=== PATIENT | female | born 1960 | race Caucasian/White ===

== ENCOUNTER 2019-06-27 11:52 | Emergency (ER) | payer SELFPAY ==
[~2019-06-27] VITALS: Ht 162.6 cm; Wt 54.0 kg
[2019-06-27] MEDS ORDERED: LIDOCAINE 1% W/EPINEPHRINE 20 ML VIAL INJ ONE (12:15)
[2019-06-27] MEDS ORDERED: TETANUS/DIPHTHERIA TOX ADULT 0.5 ML SYR IM ONE (12:15)
--- NOTE | 2019-06-27 12:34 | NUR ---
pt repeatedly refers to nurse and [employer] as an asshole and unccooperative while being sutured; yonny able to place 6 sutures to pt chin and pt continues to refer to staff as assholes
--- NOTE | 2019-06-27 13:22 | Diagnostic Imaging Report ---
CT BRAIN WO HISTORY: Trauma COMPARISON: None. TECHNIQUE: Noncontrast axial scans were obtained from skull base to the vertex. Coronal and sagittal reconstructions obtained from the axial data. One or more of the following dose reduction techniques were used: Automated exposure control, adjustment of the mA and/or kV according to patient size, and/or utilization of iterative reconstruction technique. DISCUSSION: Scalp/Skull: No calvarial fracture. Brain sulci: Mildly prominent. Ventricles: Mild compensatory dilatation. Extra-axial spaces: No masses or fluid collections. Carotid siphon calcifications. Parenchyma: Mild periventricular white matter hypodensities are likely chronic microvascular ischemic changes. Otherwise, mass, hemorrhage, or large vascular territory acute infarct. Dural sinuses: No abnormal densities. Sellar/Suprasellar region: Intact. Skull base: Intact. Incidental findings: Bilateral subcondylar mandible fractures are partially imaged; please refer to concurrent maxillofacial CT. IMPRESSION: 1. No acute intracranial abnormalities. 2. Mild supratentorial chronic microvascular ischemic change. Mild generalized cerebral volume loss. Signed by: Dr. Wilder Hua M.D. on 06/27/2019 1:19 PM
--- NOTE | 2019-06-27 13:27 | Diagnostic Imaging Report ---
CT CERVICAL SPINE WO HISTORY: Trauma COMPARISON: Concurrent head CT TECHNIQUE: CT of the cervical spine without contrast. Sagittal and coronal reformations were created. One or more of the following dose reduction techniques were used: Automated exposure control, adjustment of the mA and/or kV according to patient size, and/or utilization of iterative reconstruction technique. FINDINGS: Cervical lordosis is preserved. There is no scoliosis or subluxation. No fractures, compression deformity, or destructive osseous lesions are seen in the cervical spine. Bilateral subcondylar mandible fractures are again noted. The craniocervical junction is intact. No gross spinal canal masses are seen. The paravertebral and paraspinal soft tissues are unremarkable. Mild multilevel spondylosis is most prominent at C6-C7. Mild to moderate bilateral carotid bulb calcified plaque is present. IMPRESSION: No acute osseous abnormalities in the cervical spine. Mild multilevel spondylosis, most prominent at C6-C7. Signed by: Dr. Wilder Hua M.D. on 06/27/2019 1:23 PM
--- NOTE | 2019-06-27 13:38 | Diagnostic Imaging Report ---
CT MAXIO FAC/PARANAS WO HISTORY: Trauma COMPARISON: Concurrent head and cervical spine CT TECHNIQUE: Axial CT images through the face were obtained without contrast. Coronal/sagittal reformations were created. One or more of the following dose reduction techniques were used: Automated exposure control, adjustment of the mA and/or kV according to patient size, and/or utilization of iterative reconstruction technique. DISCUSSION: Superficial submental laceration is present with adjacent subcutaneous edema. Left maxillary subcutaneous edema is present as well. Mildly displaced bilateral subcondylar mandible fractures are present. The right mandibular condyle is displaced anteriorly onto the right articular eminence. The left mandibular condyle remains seated within the anterior left mandibular fossa. No other acute fracture is seen. The orbits are intact. Intraorbital contents are grossly unremarkable. Scattered dental periapical lucencies are present, most prominent in the left maxillary second premolar, left maxillary first molar, and left mandibular second premolar/first molar. Multiple teeth are missing. Minimal bilateral maxillary sinus mucosal thickening is present. Punctate densities in the right retromolar trigone region may be foreign bodies/debris. Right palatine tonsilloliths are noted. IMPRESSION: 1. Mildly displaced bilateral subcondylar mandible fractures. 2. No other acute osseous abnormalities in the face. 3. Scattered dental periapical lucencies, most prominent on the left as described above. Associated left maxillary subcutaneous edema. Recommend correlation with dental examination when clinically feasible. Signed by: Dr. Wilder Hua M.D. on 06/27/2019 1:34 PM
[2019-06-27 14:19] VITALS: BP 153/96
[2019-06-27] MEDS ORDERED: HYDROCODONE/APAP 7.5MG-325MG 1 EA TAB PO ONE (14:30)
--- NOTE | 2019-06-27 15:11 | NUR ---
report given to [facility]o at [facility] [place] accepting md Dr Bryan Hopson
--- NOTE | 2019-06-27 15:14 | NUR ---
[facility] called for transport to [facility] [place] given eta of 30-40 min at 1514
== END 2019-06-27 16:40 | disposition short-term general hospital (02) ==
LOC: ER 11:52
DX: S01.81XA Laceration without foreign body of other part of head, initial encounter (principal); S02.622A Fracture of subcondylar process of left mandible, initial encounter for closed fracture; S02.621A Fracture of subcondylar process of right mandible, initial encounter for closed fracture; V19.3XXA Pedal cyclist (driver) (passenger) injured in unspecified nontraffic accident, initial encounter; S00.93XA Contusion of unspecified part of head, initial encounter; S80.219A Abrasion, unspecified knee, initial encounter
CPT/HCPCS: 70450; 70486; 72125; 90471; 90714; 99284